=== PATIENT | male | born 1995 | race African-American/Black ===

== ENCOUNTER 2023-07-29 15:55 | Emergency (ER) | payer SELFPAY ==
[2023-07-29] MEDS ORDERED: TETRACAINE HCL 0.5% 4ML OPTH ONE (16:58)
[2023-07-29] MEDS ORDERED: FLUORESCEIN SODIUM 1 MG/WRAP ONE (16:58)
[2023-07-29 19:22] LABS: Absolute Eosinophils 0.1 K/uL (0-0.5); Absolute Lymphocytes (CBC) 1.5 K/uL (0.7-4.9); Absolute Monocytes 0.4 K/uL (0.1-1.3); Absolute Neutrophil 2.5 K/uL (1.8-8.0); Eosinophils % 1.5 % (0-4.4); Hematocrit 44.7 % (39.6-49.0); Hemoglobin 15.4 g/dL (13.6-17.9); Lymphocytes % 32.4 % (15.3-44.8); MCH 28.3 pg (27.0-35.0); MCHC 34.5 g/dL (32.0-36.0); MPV 9.9 fL (7.6-11.3); Monocytes % 9.4 % (3.3-12.3); Neutrophils % 55.7 % (41.7-73.7); Nucleated Red Blood Cells % 0.1 % (0-0); Platelets 155 thou/uL (152-406); RBC Red Blood Cell Count 5.45 M/uL (4.33-5.43); Red Cell Distribution Width 13.6 % (12.1-15.2)
[2023-07-29] MEDS ORDERED: NA CHLORIDE 0.9% 1,000 ML ONE (20:26)
--- NOTE | 2023-07-29 20:27 | ER ---
Nurse's Notes [facility] Name: Reji Chase Age: 27 yrs Sex: Male : 1995 Arrival Date: 07/29/2023 Time: 15:55 Bed 9 Private MD: Diagnosis: Sudden visual loss, left eye;Hyperglycemia, unspecified;Elevated blood-pressure reading, without diagnosis of hypertension Presentation: 07/28 16:21 Chief complaint: Patient states: Blurred vision L eye began yesterday. No pain or ll1 fever. Ebola Screen: Patient denies travel to an Ebola-affected area in the 21 days before illness onset. Initial Sepsis Screen: Does the patient meet any 2 criteria? No. Patient's initial sepsis screen is negative. Does the patient have a suspected source of infection? No. Patient's initial sepsis screen is negative. Risk Assessment: Do you want to hurt yourself or someone else? Patient reports no desire to harm self or others. 16:21 Method Of Arrival: Ambulatory ll1 16:21 Acuity: ABELINO 3 ll1 16:32 Coronavirus screen: Client denies travel out of the [place] in the last 14 days. At this ll1 time, the client does not indicate any symptoms associated with coronavirus-19. Onset of symptoms was July 28, 2023. Triage Assessment: 16:20 General: Appears in no apparent distress. Behavior is calm, cooperative, appropriate ll1 for age. EENT: Reports blurred vision in outer aspect of conjuctiva of left eye, iris of left eye and inner aspect of conjunctiva of left eye. 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 - Infectious Disease History:: Denies. - Social history:: Smoking status: Patient denies any tobacco usage or history of. Screenin:09 [facility] ED Fall Risk Assessment (Adult) History of falling in the last 3 months, al5 including since admission No falls in past 3 months (0 pts) Confusion or Disorientation No (0 pts) Intoxicated or Sedated No (0 pts) Impaired Gait No (0 pts) Mobility Assist Device Used No (0 pt) Altered Elimination No (0 pt) Score/Fall Risk Level 0 - 2 = Low Risk Oriented to surroundings, Maintained a safe environment, Hourly rounding (assess needs \T\ fall precautionary measures) done. Abuse screen: Denies threats or abuse. Denies injuries from another. Nutritional screening: No deficits noted. Tuberculosis screening: No symptoms or risk factors identified. Assessment: 17:08 General: Appears in no apparent distress. Behavior is calm, cooperative. Pain: Denies al5 pain. Neuro: No deficits noted. Level of Consciousness is awake, alert, obeys commands, Oriented to person, place, time, situation, Gait is steady, Speech is normal, Facial symmetry appears normal. Cardiovascular: No deficits noted. Denies chest pain, shortness of breath, Patient's skin is warm and dry. Respiratory: No deficits noted. Airway is patent Trachea midline Respiratory effort is even, unlabored, Respiratory pattern is regular, symmetrical. GI: No deficits noted. : No deficits noted. EENT: Reports blurred vision in inner aspect of conjunctiva of left eye and iris of left eye and outer aspect of conjuctiva of left eye since sunday. Derm: No deficits noted. Skin is intact, Skin is pink, warm \T\ dry. normal, Skin temperature is warm. 19:22 Reassessment: No changes from previously documented assessment. al5 Vital Signs: 16:32 BP 154 / 95; Pulse 70; Resp 17; Temp 97.8; Pulse Ox 96% ; Weight 108.86 kg; Height 6 ll1 ft. 3 in. ; Pain 0/10; 19:22 BP 152 / 94; Pulse 68; Resp 17; Temp 97.5; Pulse Ox 98% ; Pain 0/10; al5 21:51 BP 139 / 95; Pulse 72; Resp 18; Pulse Ox 100% on R/A; Pain 0/10; al5 16:32 Body Mass Index 30.00 (108.86 kg, 190.5 cm) ll1 16:32 Pain Scale: Adult ll1 19:22 Pain Scale: Adult al5 21:51 Pain Scale: Adult al5 Visual Acuity: 17:14 Left Eye Visual acuity 20/200, Pupil size 3 mm, Normal, React To Light, Reactive To al5 Accomodation; Right Eye Visual acuity 20/70, Pupil size 3 mm, Normal, React To Light, Reactive To Accomodation; Both Eyes Visual acuity 20/70; Without Lenses; ED Course: 15:57 Patient arrived in ED. im 16:16 Arm band placed on. ll1 16:21 Triage completed. ll1 16:36 Kalyan Pearson PA-C is PHCP. sb4 16:36 Adryan Dhaliwal MD is Attending Physician. sb4 16:40 Sarah Mejia, RN is Primary Nurse. al5 17:10 Performed Snellen test on patient. Both eyes 20/70, R eye 20/70, L eye all was blurry. al5 Notified PA. Have wood's lamp at bedside. 19:00 Patient has correct armband on for positive identification. Bed in low position. Call al5 light in reach. Side rails up X 1. 19:00 Provided Education on: discharge instructions, follow up opthamology.. al5 19:17 BMP Sent. al5 19:17 CBC with Diff Sent. al5 19:18 Inserted saline lock: 20 gauge in right antecubital area, using aseptic technique. al5 19:36 PHCP role handed off by Kaylan Pearson PA-C cp 19:36 Shorty Isaac PA is PHCP. cp 19:47 Orbits W/Cont In Process Unspecified. EDMS 19:47 Orbits Wo Con W/ Mpr In Process Unspecified. EDMS 20:13 Christ Wells MD is Attending Physician. cp 21:51 No provider procedures requiring assistance completed. IV discontinued, intact, al5 bleeding controlled, No redness/swelling at site. Pressure dressing applied. Administered Medications: 18:02 Drug: Tetracaine Ophthalmic Drops 0.5 % 1 drops Ophthalmic once Route: Ophthalmic; al5 Site: left eye; 18:02 Drug: Fluorescein Ophthalmic Strip 1 strip Ophthalmic once Route: Ophthalmic; Site: al5 left eye; 20:36 Drug: NS 0.9% IV 1000 ml IV at 1 bolus Per protocol; 1000 mL bolus Route: IV; Rate: 1 al5 bolus; Site: right antecubital; 21:53 Follow up: Response: No adverse reaction; IV Intake: 1000ml al5 Medication: 21:52 VIS not applicable for this client. al5 Intake: 21:53 IV: 1000ml; Total: 1000ml. al5 Outcome: 20:26 ER care complete, transfer ordered by MD. cp 21:31 Discharge ordered by MD. josue 21:52 Discharged to home ambulatory, with family, al5 21:52 Condition: good 21:52 Condition: good 21:52 Discharge instructions given to patient, Instructed on discharge instructions, follow up and referral plans. Demonstrated understanding of instructions, follow-up care, 21:53 Patient left the ED. al5 Signatures: Dispatcher [employer] EDMS Shorty Isaac PA PA cp Lewis, Lynsay RN RN ll1 Kaylan Pearson PA-C PA-Mehran sb4 Bozena Glasgow Amanda, RN RN al5 Corrections: (The following items were deleted from the chart) 16:32 16:21 Chief complaint: Patient states: Blurred vision L eye ll1 ll1
--- NOTE | 2023-07-29 20:27 | EDPHYS ---
Physician Documentation [facility] Name: Reji Chase Age: 27 yrs Sex: Male : 1995 Arrival Date: 07/29/2023 Time: 15:55 Bed 9 Private MD: ED Physician Christ Wells HPI: 07/28 18:49 This 27 yrs old Black Male presents to ER via Ambulatory with complaints of Blurred sb4 Vision - left eye only. 18:49 The patient is experiencing blurred vision, decreased vision, to the left eye, caused sb4 by an unknown mechanism. Onset: The symptoms/episode began/occurred yesterday. Aggravated by nothing. Alleviated by nothing. Patient does not utilize any form of vision correction. The patient has not experienced similar symptoms in the past. The patient has not recently seen a physician. 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 - Infectious Disease History:: Denies. - Social history:: Smoking status: Patient denies any tobacco usage or history of. ROS: 18:49 Constitutional: Negative for fever, chills, and weight loss, sb4 18:49 Eyes: Positive for blurry vision, 18:49 All other systems are negative, Exam: 18:49 Visual Acuity: I have reviewed the nursing documentation. sb4 18:49 Constitutional: This is a well developed, well nourished patient who is awake, alert, and in no acute distress. Head/Face: Normocephalic, atraumatic. 18:49 Eyes: Periorbital structures: appear normal, Pupils: equal, round, and reactive to light and accomodation, Extraocular movements: intact throughout, Lids and lashes: appear normal, unable to visualize retina, light will not pass . Vital Signs: 16:32 BP 154 / 95; Pulse 70; Resp 17; Temp 97.8; Pulse Ox 96% ; Weight 108.86 kg; Height 6 ll1 ft. 3 in. ; Pain 0/10; 19:22 BP 152 / 94; Pulse 68; Resp 17; Temp 97.5; Pulse Ox 98% ; Pain 0/10; al5 21:51 BP 139 / 95; Pulse 72; Resp 18; Pulse Ox 100% on R/A; Pain 0/10; al5 16:32 Body Mass Index 30.00 (108.86 kg, 190.5 cm) ll1 16:32 Pain Scale: Adult ll1 19:22 Pain Scale: Adult al5 21:51 Pain Scale: Adult al5 Visual Acuity: 17:14 Left Eye Visual acuity 20/200, Pupil size 3 mm, Normal, React To Light, Reactive To al5 Accomodation; Right Eye Visual acuity 20/70, Pupil size 3 mm, Normal, React To Light, Reactive To Accomodation; Both Eyes Visual acuity 20/70; Without Lenses; MDM: 16:36 Patient medically screened. sb4 20:00 Differential diagnosis: Corneal abrasion of Corneal ulcer of Foreign body in Acute cp iritis of Acute glaucoma in trauma, globe rupture. 21:00 Management of patient was discussed with the following: DR Rodney Forbes, cp ophthalmology, \T\[id number] and exam findings. Declines transfer at this time and recommends clinic f/u tomorrow with him at [place] office or urgent f/u with local ophthalmology. 07/29 08:21 Data reviewed: vital signs, nurses notes, lab test result(s), radiologic studies, I sb4 have discussed the patient's presentation/case with the attending Emergency Department Physician; and as a result, I will discharge patient. Counseling: I had a detailed discussion with the patient and/or guardian regarding the historical points, exam findings, and any diagnostic results supporting the discharge/admit diagnosis, the presence of at least one elevated blood pressure reading (>120/80) during this emergency department visit, lab results, radiology results, the need for outpatient follow up, for definitive care, an opthalmologist, to return to the emergency department if symptoms worsen or persist or if there are any questions or concerns that arise at home. 07/28 18:16 Order name: CBC with Diff; Complete Time: 19:36 sb4 07/28 20:21 Interpretation: Normal except: RBC 5.45. cp 07/28 18:16 Order name: BMP; Complete Time: 20:21 sb4 07/28 20:21 Interpretation: Normal except: NA 132; GLUC 354. cp 07/28 18:20 Order name: Orbits W/Cont; Complete Time: 20:32 EDMS 07/28 18:20 Order name: Orbits Wo Con W/ Mpr; Complete Time: 20:32 EDMS 07/28 20:35 Interpretation: Abnormal. cp 07/28 16:53 Order name: Visual Acuity; Complete Time: 17:07 sb4 07/28 18:16 Order name: IV Start; Complete Time: 19:17 sb4 Administered Medications: 07/28 18:02 Drug: Tetracaine Ophthalmic Drops 0.5 % 1 drops Ophthalmic once Route: Ophthalmic; al5 Site: left eye; 18:02 Drug: Fluorescein Ophthalmic Strip 1 strip Ophthalmic once Route: Ophthalmic; Site: al5 left eye; 20:36 Drug: NS 0.9% IV 1000 ml IV at 1 bolus Per protocol; 1000 mL bolus Route: IV; Rate: 1 al5 bolus; Site: right antecubital; 21:53 Follow up: Response: No adverse reaction; IV Intake: 1000ml al5 Disposition Summary: 07/29/23 21:31 Discharge Ordered Notes: Location: Home cp Problem: new(07/29/23 21:31) cp Symptoms: are unchanged(07/29/23 21:31) cp Condition: Stable(07/29/23 21:31) cp Diagnosis - Sudden visual loss, left eye(07/29/23 21:31) cp - Hyperglycemia, unspecified(07/29/23 21:31) cp - Elevated blood-pressure reading, without diagnosis of hypertension(07/29/23 21:31) cp Followup: cp - With: Private Physician - When: 07/30/2023 - Reason: DR Casanova, [facility], [address] [place] [address] #[phone] Discharge Instructions: - Discharge Summary Sheet cp - Hyperglycemia cp - Visual Disturbances cp - How to Take Your Blood Pressure, [id number] cp - Form - Blood Pressure Record Sheet cp - Screening for Type 2 Diabetes cp Forms: - Medication Reconciliation Form cp - Antibiotic Education cp - Prescription Opioid Use cp - Patient Portal Instructions cp - Leadership Thank You Letter cp Addendum: 07/31/2023 02:12 I was immediately available for consultation during this patient's visit. I did not e c2 personally see the patient or discuss the patient with the HECTOR. . Signatures: Dispatcher [employer] EDMS Shorty Isaac, PA PA cp Gareth, Lynsay, RN RN ll1 Kaylan Pearson PA-C PAMary sb4 Christ Wells MD MD ec2 Sarah Mejia, KULWINDER RN al5 Corrections: (The following items were deleted from the chart) 07/28 20: 20:26 Doctor cp cp : 20:26 [facility] cp cp : 20:26 Higher level of care cp cp 20:26 Stable cp cp : 20:26 new cp cp : 20:26 are unchanged cp cp : 20:26 Sudden visual loss, left eye cp cp : 20:26 Hyperglycemia, unspecified cp cp : 20:26 Elevated blood-pressure reading, without diagnosis of hypertension cp cp
--- NOTE | 2023-07-29 20:27 | RAD REPORT ---
EXAM DESCRIPTION: CT - CTORBIT CLINICAL HISTORY: blurry vision, cloudy pupil COMPARISON: Orbits W/Cont dated 07/29/2023 TECHNIQUE: CT of the orbits was obtained with and without IV contrast. Axial 2 mm thick images of the face were obtained with sagittal and coronal reconstruction images. All CT scans are performed using dose optimization technique as appropriate and may include automated exposure control or mA/KV adjustment according to patient size. FINDINGS: The left lens has an abnormal thickened and slightly shortened configuration. No enhancing orbital mass identified. The extraocular muscles are intact. Unremarkable appearance of the optic ne rve. Intracranial contents are unremarkable. Partially visualized soft tissues of the face are unrema rkable. IMPRESSION: Abnormal configuration of the left lens could be from a lens subluxation/dislocation or other lens abnormality. Suggest ophthalmology consultation.
[2023-07-30 09:05] VITALS: BP 139/95; TEMP 97.5; O2SAT 100
== END 2023-07-29 21:53 | disposition home or self-care (01) ==
LOC: ER 15:55
DX: H53.132 Sudden visual loss, left eye (principal); R73.9 Hyperglycemia, unspecified; R03.0 Elevated blood-pressure reading, without diagnosis of hypertension
CPT/HCPCS: 36415; 70480; 70481; 76377; 80048; 85025; 99284; J7030; Q9967